=== PATIENT | female | born 1945 | race Caucasian/White ===

== ENCOUNTER 2016-12-22 11:47 | Day surgery (SDC) | payer MEDICARE, OTHER ==
[2016-12-19 11:37] LABS: BASOPHILS 0.2 %; BASOPHILS ABSOLUTE 0.01 10/3/uL (0.0-0.16); EOSINOPHILS 1.6 %; EOSINOPHILS ABSOLUTE 0.08 10/3/uL (0.0-0.53); HEMOGLOBIN 12.4 g/dL (12.0-16.0); IMMATURE GRANULOCYTES 0.2 %; IMMATURE GRANULOCYTES ABSOLUTE 0.01 10/3/uL (0.0-0.11); LYMPHOCYTES 35.1 %; LYMPHOCYTES ABSOLUTE 1.76 10/3/uL (0.67-4.30); MANUAL DIFF NO %; MEAN CORPUS HGB CONC 36.5 g/dL (32.0-36.0); MEAN CORPUSCULAR HEMOGLOB 33.2 pg (26.0-34.0); MEAN CORPUSCULAR VOLUME 90.9 fL (80-100); MEAN PLATELET VOLUME 8.8 fL (9.2-13.0); MONOCYTES ABSOLUTE 0.45 10/3/uL (0.21-1.20); NEUTROPHILS 53.9 %; PLATELET COUNT 115 10/3/uL (150-400); RBC DISTRIBUTION WIDTH 12.3 % (12.0-16.0); RED CELL COUNT 3.74 10/6/uL (4.0-5.6)
[2016-12-19 11:50] LABS: BUN (BLOOD UREA NITROGEN) 29 MG/DL (6-23); CALCIUM, SERUM 9.1 MG/DL (8.5-10.4); CHLORIDE, SERUM 104 MMOL/L (96-112); CO2 (CARBON DIOXIDE) 28 MMOL/L (24-34); CREATININE 1.35 MG/DL (0.55-1.02); GFR AFRICAN AMERICAN 46 ML/MIN (>=60); GFR NON AFRICAN AMERICAN 40 ML/MIN (>=60); GLUCOSE, SERUM 161 MG/DL (60-99); POTASSIUM, SERUM 4.3 MMOL/L (3.5-5.3); SODIUM, SERUM 143 MMOL/L (135-148)
--- NOTE | ~2016-12-22 | OP ---
Record Of Operation [facility] [address] [place]. [address] NAME: LACY LUND : 47 STATUS : REG [facility] PAT#: [id number] AGE: 71 ADM/REG DATE : 12/22/16 MR#: [id number] REPORT SERV DATE: 12/22/16 DICTATED BY: JORGE SANTO JR. DATE: 12/22/16 REPORT STATUS : Draft TRANSCRIBED BY: DONNIE DATE: 12/22/16 DATE OF PROCEDURE: REASON FOR SURGERY: This 71-year-old patient, presents with a diagnosis of malignancy of the right breast. 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 Therefore, after presentation at the breast conference, I have elected to go ahead with segmentectomy alone without laura sampling. The operation will be very brief because of her comorbid conditions. Postoperative hormone blocking therapy is planned, but it is hoped that radiation therapy will be avoided for this very small tumor. PREOPERATIVE DIAGNOSIS: Carcinoma, right breast. POSTOPERATIVE DIAGNOSIS: Carcinoma, right breast. SURGEON: Jorge Santo M.D. SURGERY PERFORMED: Ultrasound localized orientation. PROCEDURE IN DETAIL: The patient was taken to the operating room and under general anesthesia, she was prepped and draped in supine position in usual sterile fashion. A curvilinear incision was made over the previously localized site. Vertical dissection was carried down through the fatty tissue, and then a three-dimensional excision measuring 3.5 cm across was taken, keeping the now indurated biopsy site center most within the specimen. It was removed and oriented for pathology. The wound was irrigated. Hemostasis was obtained. The wound was closed with two layers of Monocryl. I attended the pathology cutting. The rounded specimen was flattened during evaluation in the anterior and posterior margins that were fully a centimeter or more, initially have been compressed to very thin. At the time of sectioning, the anterior and posterior margins are probably at 0.5 cm at this time in the compressed state. No additional margins were indicated. The patient tolerated the procedure well without any complications. ESTIMATED BLOOD LOSS: Negligible. SPONGE COUNT: Correct. MR/MODL Jorge Santo Jr., M.D. Record Of Operation [address] [address] NAME: LACY LUND : 47 STATUS : REG [facility] [place] PAT#: [id number] AGE: 71 ADM/REG DATE : 12/22/16 MR#: [id number] REPORT SERV DATE: 12/22/16 DICTATED BY: JORGE SANTO JR. DATE: 12/22/16 REPORT STATUS : Draft TRANSCRIBED BY: MODL DATE: 12/22/16 / [id number] CC: Yuli Uriarte Jr., M.D. Donald Chamberlain, M.D. [facility]
[~2016-12-22 11:47] MED LIST: ASAB PO; COREG12 PO; COZ25 PO; CYANO1000T PO; GLUCPH PO; IRON PO; KDUR10 PO; L40 PO; LEVOTHYROXIN88 MCG PO; MAGNESIUM PO; MAX25 PO; MCZ25 PO; MEVACOR40 MG PO; NORCO1 TAB PO; NORV5 PO; PRILOSEC40 MG PO; SIN25 PO; VITD PO
== END 2016-12-22 19:09 | disposition home or self-care (01) ==
LOC: SDC 11:47
PROVIDERS: Surgery Surgical Oncology
PROC: 0HBT0ZZ Excision of Right Breast, Open Approach (ICD-10-PCS; principal; 2016-12-22 13:15)
DX: C50.911 Malignant neoplasm of unspecified site of right female breast (principal); E11.8 Type 2 diabetes mellitus with unspecified complications; I11.0 Hypertensive heart disease with heart failure; I50.9 Heart failure, unspecified; K21.9 Gastro-esophageal reflux disease without esophagitis; E78.00 Pure hypercholesterolemia, unspecified; K75.81 Nonalcoholic steatohepatitis (NASH); K74.60 Unspecified cirrhosis of liver; E03.9 Hypothyroidism, unspecified; M19.90 Unspecified osteoarthritis, unspecified site; D64.9 Anemia, unspecified; Z90.710 Acquired absence of both cervix and uterus; Z90.49 Acquired absence of other specified parts of digestive tract; Z79.82 Long term (current) use of aspirin; Z79.891 Long term (current) use of opiate analgesic; Z79.899 Other long term (current) drug therapy
CPT/HCPCS: 80048; 82962; 85025; 88307; 93005; J0690; J3010